=== PATIENT | male | born 1930 | race Caucasian/White ===

== ENCOUNTER 2016-05-02 14:12 | Emergency (ER) | payer OTHER ==
[~2016-05-02] VITALS: Ht 175.3 cm; Wt 73.8 kg
[~2016-05-02 14:12] MED LIST: CENTTAB9 PO; LORA0.5T PO; OMEP20CA5 PO; PROC10TA4 PO; TEMA15 PO; ZOFR4TAB3 SL; eye gtts
[2016-05-02 14:35] VITALS: BP 132/67; PULSE 75; RESP 16; TEMP 98.5; O2SAT 94
[2016-05-02] MEDS ORDERED: ACETAMINOPHEN/HYDROcodone 325 MG/5 MG TAB PO ONE (14:45)
--- NOTE | 2016-05-02 14:53 | PD ---
HPI Chief Complaint: Fall Time Seen by Provider: 14:48 Travel History International Travel<30 days: No Contact w/Intl Traveler<30days: No Traveled to known affect area: No History of Present Illness HPI 86-year-old male that presents to the ED for evaluation of trip and fall. Per patient he had trip and fall today at the [employer]. Patient landed trying to stop his fall with both his arms. Per patient he possibly hit his head but he is not sure. He denies any pain in the hips, abdomen, chest but states that most of his pain is on both shoulders bilaterally as well as on the left knee. Per patient most of the pain appears to be on the knee itself. He denies any numbness, tilling, weakness. He does not take any blood thinners. He did not loss consciousness. Patient comes here with family members. He denies any pain in the right lower extremity or any pain on the back or neck. He has not taken anything for this. Injury occurred at 11:00 today. He states having no surgeries or injuries to these areas in the past. Allergy to aspirin. Pain per patient is severe 7 out of 10 especially on the left knee and with movement and weightbearing. 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) High Cholesterol: No Chemotherapy: No Chest Pain: No Congestive Heart Failure: No COPD: No Cerebrovascular Accident: No Diabetes: No Endocrine: No Gastrointestinal Disorders: Yes GERD: Yes Glaucoma: No Genitourinary: No Headaches: Yes Hepatitis: No Hiatal Hernia: No Hypertension: No Immune Disorder: No Kidney Stones: No Musculoskeletal: Yes Neurologic: Yes Psychiatric: Yes Reproductive: No Respiratory: No Myocardial Infarction: No Radiation Therapy: No Renal Failure: No Seizures: No Sickle Cell Disease: No Sleep Apnea: No Thyroid Disease: No Ulcer: No Past Surgical History Abdominal Surgery: No AICD: No Cardiac Surgery: No Ear Surgery: No Endocrine Surgery: No Eye Surgery: No Genitourinary Surgery: Yes (PROSTATE 1991) Gynecologic Surgery: No Neurologic Surgery: No Oral Surgery: No Pacemaker: No Thoracic Surgery: No Other Surgery: Yes Social History Alcohol Use: Yes (OCC.) Tobacco Use: No (QUIT 1968) Substance Use: No Allergies-Medications (Allergen,Severity, Reaction): Coded Allergies: Aspirin (Verified Adverse Reaction, Mild, 05/02/16) GI UPSET has no allergy Reported Meds & Prescriptions Reported Meds & Active Scripts Active Walker/Adult/Folding (Device) 1 Mis Mis 1 Ea .ROUTE DIRECTED Lortab (Hydrocodone-Acetaminophen) 5-325 Mg Tab 1 Tab PO Q6H PRN Reported Omeprazole 20 Mg Tab 20 Mg PO DAILY Restoril (Temazepam) 15 Mg Cap 15 Mg PO HS PRN Review of Systems General / Constitutional: No: Fever, Chills, Weight Gain, Weight Loss, Other Eyes: No: Diploplia, Blurred Vision, Photophobia, Drainage, Redness, Foreign Body Sensation, Pain, Tearing, Blind Spots, Visual changes, Blindness, Other HENT: No: Headaches, Vertigo, Lightheadedness, Sore Throat, Rhinitis, Rhinorrhea, Congestion, Nosebleed, Neck Stiffness, Neck Pain, Masses, Gingival Bleeding, Dental Difficulties, Ear Discharge, Earache, Other Cardiovascular: No: Chest Pain or Discomfort, Palpitations, Irregular Rhythm, Tachycardia, Diaphoresis, Syncope, Dyspnea on exertion, Varicosities, Edema, Cyanosis, Varicosities, Phlebitis, Claudication, Other Respiratory: No: Cough, Shortness of Breath, Wheezing, Sneezing, Orthopnea, Hemoptysis, Stridor, Night Sweats, Pleuritic Pain, Other Gastrointestinal: No: Nausea, Vomiting, Diarrhea, Abdominal Pain, Hematemesis, Hematochezia, Constipation, Changes in Bowel Habits, Indigestion, Dysphagia, Loss of Appetite, Other Genitourinary: No: Urgency, Frequency, Dysuria, Nocturia, Hematuria, Decreased Urinary Output, Oliguria, Hesitancy, Dribbling, Incontinence, Pelvic Pain, Flank Pain, Dyspareunia, Discharge, Dysmenorrhea, Menorrhagia, Metorrhagia, Vaginal Bleeding, Other Musculoskeletal: Positive: Limited ROM (due to pain), Pain, No: Myalgias, Arthralgias, Weakness, Cramping, Edema, Atrophy, Other Skin: Positive Rash (abrasions), No Itching, No Dryness, No Lumps, No Hives, No Change in Pigmentation, No Change in nails, No Alopecia, No Lesions, No Breast Lumps, No Breast Tenderness, No Breast Swelling, No Other Neurologic: No: Weakness, Dizziness, Syncope, Focal Abnormalities, Coordination Problem, Tremor, Ataxia, Headache, Change in Mentation, Slurred Speech, Paresthesia, Incontinence, Seizures, Sensory Disturbance, Other Psychiatric: No: Anxiety, Depression, Suicidal Ideations, Disorder of Thought, Mood Disorder, Substance Abuse, Homicidal Ideation, Other Endocrine: No: Heat Intolerance, Cold Intolerance, Polyuria, Polydipsia, Other Hematologic/Lymphatic: No: Easy Bruising Physical Exam Narrative GENERAL: SKIN: Warm and dry. HEAD: Atraumatic. Normocephalic. EYES: Pupils equal and round 4 mm reactive to light and accommodation. No scleral icterus. No injection or drainage. ENT: No nasal bleeding or discharge. Mucous membranes pink and moist. Tongue is midline. No uvula deviation. NECK: Trachea midline. No JVD. CARDIOVASCULAR: Regular rate and rhythm. No murmurs, S3, S4. RESPIRATORY: No accessory muscle use. Clear to auscultation. Breath sounds equal bilaterally. GASTROINTESTINAL: Abdomen soft, non-tender, nondistended. Hepatic and splenic margins not palpable. MUSCULOSKELETAL: Extremities without clubbing, cyanosis, or edema. No obvious deformities. Patient has pain especially with touch on both shoulders bilaterally. Left worse than right. Some bruising noted. No obvious deformity noted. Full range of motion of the elbows and wrist as well as the fingers. 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 Patient does have abrasions noted to the left knee but able to move it. Patient does have and with flexion and extension. Most of the pain appears to be on the patella area. No pain with range of motion or with touch on the entire right lower extremity as well as to the ankle and hip and foot and toes of the left lower extremity. No lumbar, thoracic, cervical spine tenderness to palpation. No chest discomfort or abdominal discomfort noted with touch. NEUROLOGICAL: Awake and alert. No obvious cranial nerve deficits. Motor grossly within normal limits. Five out of 5 muscle strength in the arms and legs. Normal speech. PSYCHIATRIC: Appropriate mood and affect; insight and judgment normal. Data Data Last Documented VS Vital Signs Date Time Temp Pulse Resp B/P Pulse Ox O2 Delivery O2 Flow Rate FiO2 05/02/16 14:35 98.5 75 16 132/[address] Brain W/O Iv Contrast(Rout) (05/02/16 14:45) Knee, Complete (4vws) (05/02/16 14:45) Shoulder, Complete (>2vws) (05/02/16 14:45) Ice/Cold Pack (05/02/16 14:45) Shoulder, Complete (>2vws) (05/02/16 ) Acetamin-Hydrocod 325-5 Mg ([place] 5-325 (05/02/16 14:45) Splint Or Brace Apply/Monitor (05/02/16 16:08) Immobilizer Knee 20 Inch (05/02/16 ) [facility] Medical Decision Making Medical Screen Exam Complete: Yes Emergency Medical Condition: Yes Medical Record Reviewed: Yes Interpretation(s) Last Impressions Shoulder X-Ray 05/02/16 1445 Signed Impressions: Service Date/Time: Monday, May 02, 2016 15:20 - CONCLUSION: Osteopenia with no acute fracture or malalignment Malachi Smith MD Knee X-Ray 05/02/16 1445 Signed Impressions: Service Date/Time: Monday, May 02, 2016 15:13 - CONCLUSION: 1. Osteopenia with no acute fracture or malalignment. 2. 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 3. 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 Malachi Smith MD Shoulder X-Ray 05/02/16 0000 Signed Impressions: Service Date/Time: Monday, May 02, 2016 15:24 - CONCLUSION: Osteopenia with no acute fracture or malalignment. Malachi Smith MD CT head negative Differential Diagnosis Fracture versus sprain versus strain versus contusion Narrative Course 86-year-old male that presents to the ED for evaluation of fall. Patient was properly examined and was found to have signs and symptoms concerning for fractures. X-rays were done. Patient was given Lortab for pain. Imaging was essentially unremarkable for acute disease. Patient was reassured. Patient was put in a knee immobilizer for comfort on the left knee. Patient will be given prescription for walker. Perfusion for Lortab for pain. Ice or warm compresses. Rest. Close follow-up with PCP. See ED for any worsening symptoms. Diagnosis Primary Impression: Fall Qualified Code: W19.XXXA - Fall, initial encounter Additional Impressions: Knee contusion Qualified Code: S80.02XA - Contusion of left knee, initial encounter Shoulder contusion Qualified Code: S40.019A - Contusion of shoulder, unspecified laterality, initial encounter Patient Instructions: Narcotic given in the ED Additional Instructions: Take medications as prescribed. Follow-up with PCP. See ED for any worsening symptoms. Do not drink or drive while taking pain medication. Apply ice or heat as needed for pain Med/Other Pt SpecificInfo: Prescription(s) given Scripts Walker/Adult/Folding 1 Mis Mis #1 EA .ROUTE DIRECTED Ref 0 Prov:Rosas Michael MD 05/02/16 Hydrocodone-Acetaminophen (Lortab)5-325 Mg Tab1 Tab PO Q6H PRN (PAIN) #20 TAB Prov:Rosas Michael MD 05/02/16 Disposition: 01 DISCHARGE HOME Condition: Melecio Brown May 02, 2016 14:53
[2016-05-02] MEDS ORDERED: OMEP20TA PO (15:08)
[2016-05-02] MEDS ORDERED: REST15CA PO (15:08)
--- NOTE | 2016-05-02 15:57 | RADHPO ---
EXAM DATE/TIME: 05/02/2016 15:13 [facility] COMPARISON: No previous studies available for comparison. INDICATIONS : Fell , has left knee pain with limited ROM MEDICAL HISTORY : None. SURGICAL HISTORY : left knee ENCOUNTER: Initial ACUITY: 1 day PAIN SCORE: 9/10 LOCATION: Left knee FINDINGS: A standard 4 view examination of the left knee was obtained and demonstrates the patient is status po st hemiarthroplasty in the medial compartment. There is diffuse osteopenia with no acute fracture or malalignment. There are degenerative changes in the patellofemoral joint with spurring. There is a sm all joint effusion. CONCLUSION: 1. Osteopenia with no acute fracture or malalignment. 2. 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 3. 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 Malachi Smith MD on May 02, 2016 at 15:55 Board Certified Radiologist. This report was verified electronically.
--- NOTE | 2016-05-02 15:58 | RADHPO ---
EXAM DATE/TIME: 05/02/2016 15:20 [facility] COMPARISON: No previous studies available for comparison. INDICATIONS : Left shoulder pain with limited ROM from fall today MEDICAL HISTORY : None. SURGICAL HISTORY : Left knee surgery ENCOUNTER: Initial ACUITY: 1 day PAIN SCORE: 9/10 LOCATION: Left Shoulder FINDINGS: Multiple view examination of the left shoulder demonstrates no evidence of fracture or dislocation. The glenohumeral and acromioclavicular joints are maintained. There is normal range of motion betwee n internal and external rotation. There is diffuse osteopenia. CONCLUSION: Osteopenia with no acute fracture or malalignment Malachi Smith MD on May 02, 2016 at 15:57 Board Certified Radiologist. This report was verified electronically.
--- NOTE | 2016-05-02 16:00 | RADHPO ---
EXAM DATE/TIME: 05/02/2016 15:24 [facility] COMPARISON: SHOULDER RIGHT COMPLETE (>2VWS), September 17, 2012, 16:11. INDICATIONS : Right shoulder pain with limited ROM from fall today MEDICAL HISTORY : None. SURGICAL HISTORY : Left knee ENCOUNTER: Initial ACUITY: 1 day PAIN SCORE: 9/10 LOCATION: Right shoulder FINDINGS: Multiple view examination of the right shoulder demonstrates no evidence of fracture or dislocation. The glenohumeral and acromioclavicular joints are maintained. There is normal range of motion betwe en internal and external rotation. There is diffuse osteopenia. CONCLUSION: Osteopenia with no acute fracture or malalignment. Malachi Smith MD on May 02, 2016 at 15:57 Board Certified Radiologist. This report was verified electronically.
[2016-05-02] MEDS ORDERED: HYDR-3533 PO (16:32)
[2016-05-02] MEDS ORDERED: WALKER/ADULT/FO1 MIS (16:32)
--- NOTE | 2016-05-02 16:40 | RADHPO ---
EXAM DATE/TIME: 05/02/2016 16:09 [facility] COMPARISON: No previous studies available for comparison. INDICATIONS : Trauma; fall. RADIATION DOSE: 63.32 CTDIvol (mGy) MEDICAL HISTORY : Cardiovascular disease. SURGICAL HISTORY : None. ENCOUNTER: Initial ACUITY: 1 day PAIN SCALE: 0/10 LOCATION: cranial TECHNIQUE: Multiple contiguous axial images were obtained of the head. Using automated exposure control and adj ustment of the mA and/or kV according to patient size, radiation dose was kept as low as reasonably a chievable to obtain optimal diagnostic quality images. FINDINGS: CEREBRUM: The ventricles are normal for age with moderate atrophic change. Periventricular white matter lucenci es are present characteristics of chronic small vessel ischemic change. No evidence of midline shift, mass lesion, hemorrhage or acute infarction. No extra-axial fluid collections are seen. POSTERIOR FOSSA: The cerebellum and brainstem are intact. The 4th ventricle is midline. The cerebellopontine angle i s unremarkable. EXTRACRANIAL: The visualized portion of the orbits is intact. SKULL: The calvaria is intact. No evidence of skull fracture. CONCLUSION: 1. Negative trauma study with no evidence of hemorrhage or mass effect. 2. Atrophy and chronic small vessel ischemic change. Malachi Smith MD on May 02, 2016 at 16:37 Board Certified Radiologist. This report was verified electronically.
== END 2016-05-02 17:13 | disposition home or self-care (01) ==
LOC: PHEFT 14:12
DX: S80.02XA Contusion of left knee, initial encounter (principal); S40.012A Contusion of left shoulder, initial encounter; S40.011A Contusion of right shoulder, initial encounter; W01.0XXA Fall on same level from slipping, tripping and stumbling without subsequent striking against object, initial encounter; Y92.512 Supermarket, store or market as the place of occurrence of the external cause; Z87.39 Personal history of other diseases of the musculoskeletal system and connective tissue; Z86.59 Personal history of other mental and behavioral disorders; Z86.79 Personal history of other diseases of the circulatory system; Z87.19 Personal history of other diseases of the digestive system; Z86.69 Personal history of other diseases of the nervous system and sense organs; Z87.891 Personal history of nicotine dependence
CPT/HCPCS: 70450; 73030; 73564; 99284; L1830

== ENCOUNTER 2016-05-15 12:07 | Emergency (ER) | payer OTHER ==
[~2016-05-15] VITALS: Ht 175.3 cm; Wt 75.0 kg
[~2016-05-15 12:07] MED LIST changes: -CENTTAB9 PO; +HYDR-3533 PO; -LORA0.5T PO; -OMEP20CA5 PO; +OMEP20TA PO; -PROC10TA4 PO; +REST15CA PO; -TEMA15 PO; +WALKER/ADULT/FO1 MIS; -ZOFR4TAB3 SL; -eye gtts
[2016-05-15 12:11] VITALS: BP 134/63; PULSE 79; RESP 15; TEMP 98.2; O2SAT 98
--- NOTE | 2016-05-15 12:29 | PD ---
HPI Chief Complaint: Fall Time Seen by Provider: 12:29 Travel History International Travel<30 days: No Contact w/Intl Traveler<30days: No Traveled to known affect area: No History of Present Illness HPI 86-year-old male presents to emergency department for evaluation of persistent left shoulder pain. Patient had a trip and fall May 02, 2016. He was seen and evaluated in the [facility] emergency department. X-ray imaging of the bilateral shoulders was completed at that time. They're negative for acute bony normality. Patient states that the right shoulder has "pretty much healed " but he has persistent, worsening pain in his left shoulder. Exacerbated with movement. Pain is primarily on the anterior lateral aspect of the left shoulder. Denies any new injury. Has not followed up with his primary care provider. He has been taking Lortab as prescribed but is also complaining of constipation associated with this. He has no other symptoms to report at this time. 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) High Cholesterol: No Chemotherapy: No Chest Pain: No Congestive Heart Failure: No COPD: No Cerebrovascular Accident: No Diabetes: No Diminished Hearing: No Endocrine: No Gastrointestinal Disorders: Yes GERD: Yes Glaucoma: No Genitourinary: No Headaches: Yes Hepatitis: No Hiatal Hernia: No Hypertension: No Immune Disorder: No Kidney Stones: No Musculoskeletal: Yes Neurologic: Yes Psychiatric: Yes Reproductive: No Respiratory: No Myocardial Infarction: No Radiation Therapy: No Renal Failure: No Seizures: No Sickle Cell Disease: No Sleep Apnea: No Thyroid Disease: No Ulcer: No Past Surgical History Abdominal Surgery: No AICD: No Cardiac Surgery: No Ear Surgery: No Endocrine Surgery: No Eye Surgery: No Genitourinary Surgery: Yes (PROSTATE 1991) Gynecologic Surgery: No Neurologic Surgery: No Oral Surgery: No Pacemaker: No Thoracic Surgery: No Other Surgery: Yes Social History Alcohol Use: Yes (OCC.) Tobacco Use: No (QUIT 1968) Substance Use: No Allergies-Medications (Allergen,Severity, Reaction): Coded Allergies: Aspirin (Verified Adverse Reaction, Mild, 05/15/16) GI UPSET has no allergy Reported Meds & Prescriptions Reported Meds & Active Scripts Active Mobic (Meloxicam) 7.5 Mg Tab 7.5 Mg PO DAILY PRN Walker/Adult/Folding (Device) 1 Mis Mis 1 Ea .ROUTE DIRECTED Lortab (Hydrocodone-Acetaminophen) 5-325 Mg Tab 1 Tab PO Q6H PRN Reported Omeprazole 20 Mg Tab 20 Mg PO DAILY Restoril (Temazepam) 15 Mg Cap 15 Mg PO HS PRN Review of Systems Except as stated in HPI: all other systems reviewed are Neg Physical Exam Narrative GENERAL: Well-nourished, well-developed elderly male patient, ambulatory no acute distress SKIN: Focused skin assessment warm/dry. Ecchymosis over the anterolateral right proximal upper extremity. HEAD: Normocephalic. EYES: No scleral icterus. No injection or drainage. NECK: Supple, trachea midline. No JVD or lymphadenopathy. CARDIOVASCULAR: Regular rate and rhythm without murmurs, gallops, or rubs. RESPIRATORY: Breath sounds equal bilaterally. No accessory muscle use. MUSCULOSKELETAL: No cyanosis, or edema. Congenital deformity of the left hand. Tenderness of palpation of his left anterolateral shoulder. No deformity. Pain is exacerbated with abduction greater than 60. Patient can reach across his chest however this elicits pain in the left shoulder. Distal pulses are palpable. Cap refill is within normal limits. BACK: Nontender without obvious deformity. No CVA tenderness. Data Data Last Documented VS Vital Signs Date Time Temp Pulse Resp B/P Pulse Ox O2 Delivery O2 Flow Rate FiO2 05/15/16 12:11 98.2 79 15 134/63 98 Orders Shoulder, Complete (>2vws) (05/15/16 ) Ketorolac Inj (Toradol Inj) (05/15/16 13:15) Splint Or Brace Apply/Monitor (05/15/16 13:50) [facility] Medical Decision Making Medical Screen Exam Complete: Yes Emergency Medical Condition: Yes Medical Record Reviewed: Yes Differential Diagnosis Sprain versus fracture versus dislocation versus ligamentous injury Narrative Course 86-year-old male presents to the emergency department for evaluation of persistent, worsening left shoulder pain. Patient appears well and without distress. X-ray imaging is repeated with no acute bony abnormality. This is a normal examination for a person of this age. Patient was provided pain control. He is counseled on care. Placed in a sling and educated on range of motion exercises. He is encouraged to follow-up with orthopedic assistant as outpatient MRI may be warranted. He agrees to return immediately with any acute worsening of symptoms. Diagnosis Primary Impression: Left shoulder pain Qualified Code: M25.512 - Left shoulder pain, unspecified chronicity Referrals: Orthopaedic Surgeon Primary Care Physician Patient Instructions: General Instructions, Shoulder Pain (ED) Additional Instructions: Ice and/or warm moist heat may help to alleviate symptoms Follow-up with a primary care provider Seek orthopedic evaluation. Outpatient MRI may be warranted of her left shoulder. Wear sling for support. Do not sleep in this. Do not wear sling at all times and do range of motion exercises to reduce risk of frozen shoulder MiraLAX 2 times a day as directed on the package while taking narcotic pain medication to reduce constipation risk Maintain adequate oral hydration Do not take ibuprofen, Aleve, Advil, or other NSAIDs if taking meloxicam as prescribed Return immediately to the emergency department with any acute worsening of symptoms Med/Other Pt SpecificInfo: Prescription(s) given Scripts Meloxicam (Mobic)7.5 Mg Tab7.5 Mg PO DAILY PRN (PAIN SCALE 1 TO 10) #7 TAB Ref 0 Prov:Neida Lowe 05/15/16 Disposition: 01 DISCHARGE HOME Condition: Stable Neida Lowe May 15, 2016 12:29
[2016-05-15] MEDS ORDERED: KETOROLAC TROMETHAMINE 60 MG/2 ML (IM) VIAL IM ONE (13:15)
--- NOTE | 2016-05-15 13:44 | RADRPT ---
EXAM DATE/TIME: 05/15/2016 13:42 [facility] COMPARISON: SHOULDER LEFT COMPLETE (>2VWS), May 02, 2016, 15:20. INDICATIONS : Left shoulder pain after fall two weeks ago. MEDICAL HISTORY : Cardiovascular disease. SURGICAL HISTORY : None. ENCOUNTER: Initial ACUITY: 2 weeks PAIN SCORE: 10/10 LOCATION: Left shoulder. FINDINGS: Multiple view examination of the left shoulder demonstrates no evidence of fracture or dislocation. The glenohumeral and acromioclavicular joints are maintained. There is normal range of motion betwee n internal and external rotation. Bony mineralization is normal. CONCLUSION: Normal examination for a patient of this age. Thompson Laws MD FACR on May 15, 2016 at 13:43 Board Certified Radiologist. This report was verified electronically.
[2016-05-15] MEDS ORDERED: MOBI7.5T PO (13:52)
[2016-05-15 14:20] VITALS: BP 130/78; RESP 17; TEMP 98.1
== END 2016-05-15 14:20 | disposition home or self-care (01) ==
LOC: NEPA 12:07
DX: M25.512 Pain in left shoulder (principal)
CPT/HCPCS: 73030; 96372; 99283; J1885

== ENCOUNTER 2017-03-31 09:32 | Emergency (ER) | payer OTHER ==
[~2017-03-31] VITALS: Ht 175.3 cm; Wt 69.0 kg
[~2017-03-31 09:32] MED LIST changes: +MOBI7.5T PO; -OMEP20TA PO; +OMEP20TA93 PO
[2017-03-31 09:39] VITALS: BP 118/56; PULSE 66; RESP 17; TEMP 98.6; O2SAT 97
--- NOTE | 2017-03-31 09:52 | PD ---
HPI Chief Complaint: Musculoskeletal Complaint Time Seen by Provider: 09:51 Travel History International Travel<30 days: No Contact w/Intl Traveler<30days: No Traveled to known affect area: No History of Present Illness HPI 87-year-old male came to the emergency room with history of right upper extremity tingling and numbness for past 6-7 days. Patient says that he generally sleeps on his right side but he has been doing that for years. Lately he has been woken up in the middle of his sleep at night feeling intense numbness of his right hand that travels up to his elbow and the shoulder. The numbness is of all 5 fingers. Patient says that when he wakes up his entire arm is numb but as the day progresses the numbness slowly goes away. His strength has not become worse in the past 6-7 days. Patient still goes to work. Vital signs were stable. No history of pain or any other complaints. He has been a relatively healthy individual and takes. Medications. No changes in his medications. He is not a smoker. No history of associated shortness of breath or any other symptoms. Currently he says his arm feels slightly tingling. This is the first time he has come to see a physician regarding this. [facility] Past Medical History Narrative Medical List of his past medical, surgical, social and family history is reviewed from the nursing note. 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, MITRAL VALVE PROLAPSE ) High Cholesterol: Yes (HYPERLIPIDEMIA ) Chemotherapy: No Chest Pain: No Congestive Heart Failure: No COPD: No Cerebrovascular Accident: No Diabetes: No Diminished Hearing: Yes (HEARING PROBLEM ) Endocrine: No Gastrointestinal Disorders: Yes GERD: Yes Glaucoma: No Genitourinary: No Headaches: Yes Hepatitis: No Hiatal Hernia: No Hypertension: No Immune Disorder: No Kidney Stones: No Musculoskeletal: Yes Neurologic: Yes Psychiatric: Yes Reproductive: No Respiratory: No Myocardial Infarction: No Radiation Therapy: No Renal Failure: No Seizures: No Sickle Cell Disease: No Sleep Apnea: No Thyroid Disease: No Ulcer: No Past Surgical History Abdominal Surgery: No AICD: No Cardiac Surgery: No Ear Surgery: No Endocrine Surgery: No Eye Surgery: No Genitourinary Surgery: Yes (PROSTATE 1991) Gynecologic Surgery: No Neurologic Surgery: No Oral Surgery: No Pacemaker: No Thoracic Surgery: No Other Surgery: Yes Social History Alcohol Use: Yes (OCC.) Tobacco Use: No (QUIT 1968) Substance Use: No Allergies-Medications (Allergen,Severity, Reaction): Coded Allergies: aspirin (Unverified Adverse Reaction, Mild, 09/28/16) GI UPSET has no allergy Comments List of his allergies reviewed from the nursing note. Reported Meds & Prescriptions Reported Meds & Active Scripts Active Reported Omeprazole 20 Mg Tab 20 Mg PO DAILY Narrative Medication List of his home medications reviewed from the nursing note. Review of Systems Except as stated in HPI: all other systems reviewed are Neg Neurologic: Positive: Paresthesia Physical Exam Narrative GENERAL: Awake, alert, hard of hearing, no obvious distress, elderly SKIN: Focused skin assessment warm/dry. HEAD: Atraumatic. Normocephalic. EYES: Pupils equal and round. No scleral icterus. No injection or drainage. ENT: No nasal bleeding or discharge. Mucous membranes pink and moist. NECK: Trachea midline. No JVD. CARDIOVASCULAR: Regular rate and rhythm. No murmur appreciated. RESPIRATORY: No accessory muscle use. Clear to auscultation. Breath sounds equal bilaterally. GASTROINTESTINAL: Abdomen soft, non-tender, nondistended. Hepatic and splenic margins not palpable. MUSCULOSKELETAL: No obvious deformities. No clubbing. No cyanosis. No edema. NEUROLOGICAL: Awake and alert. No obvious cranial nerve deficits. Motor grossly within normal limits. Normal speech. PSYCHIATRIC: Appropriate mood and affect; insight and judgment normal. Data Data Last Documented VS Vital Signs Date Time Temp Pulse Resp B/P (MAP) Pulse Ox O2 Delivery O2 Flow Rate FiO2 03/31/17 09:39 98.6 66 17 118/56 ([address] Brain W/O Iv Contrast(Rout) (03/31/17 ) Ct Cerv Spine W/O Contrast (03/31/17 ) Ed Discharge Order (03/31/17 10:53) [facility] Medical Decision Making Medical Screen Exam Complete: Yes Emergency Medical Condition: Yes Medical Record Reviewed: Yes Differential Diagnosis Paresthesia, myelopathy, PVD Narrative Course 10:51 AM patient has good bounding radial pulses. CT scan of his brain and cervical spine was done. CT scan of the brain shows cerebral atrophy and some degenerative white matter changes. C-spine shows DJD's at multilevel. No severe foraminal narrowing or canal stenosis. At this point I am still convinced that this is probably from a myelopathy or radiculopathy. I'm comfortable however discharging him home since his symptoms are reversible every day. He needs to follow up with his primary care and get an outpatient MRI and a follow-up with neurology. 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 Otherwise follow-up with your primary care who needs to order an outpatient MRI and a referral to a neurologist. Med/Other Pt SpecificInfo: No Change to Meds Disposition: 01 DISCHARGE HOME Condition: Stable Fabiana Rodriguez MD Mar 31, 2017 09:52
--- NOTE | 2017-03-31 10:26 | RADRPT ---
EXAM DATE/TIME: 03/31/2017 10:14 [facility] COMPARISON: CT BRAIN W/O CONTRAST, May 02, 2016, 16:09. INDICATIONS : Right arm pain and tingling. Evaluate for cerebrovascular accident. RADIATION DOSE: 55.99 CTDIvol (mGy) MEDICAL HISTORY : Cardiovascular disease. Gastroesophageal reflux disease. Carcinoma, prostate. SURGICAL HISTORY : Prostatectomy. ENCOUNTER: Initial ACUITY: 1 week PAIN SCALE: 0/10 LOCATION: cranial TECHNIQUE: Multiple contiguous axial images were obtained of the head. Using automated exposure control and adj ustment of the mA and/or kV according to patient size, radiation dose was kept as low as reasonably a chievable to obtain optimal diagnostic quality images. DICOM format image data is available electro nically for review and comparison. FINDINGS: CEREBRUM: Stable demonstrating central atrophy with ventricular enlargement and confluent periventricular white matter disease. No focal findings suggesting the presence of an acute stroke or hemorrhage. There is no mass mass effect. POSTERIOR FOSSA: The cerebellum and brainstem are intact. The 4th ventricle is midline. The cerebellopontine angle i s unremarkable. EXTRACRANIAL: The visualized portion of the orbits is intact. SKULL: The calvaria is intact. No evidence of skull fracture. CONCLUSION: 1. 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 2. No evidence of acute infarct, hemorrhage, mass or edema. Edgar Kessler MD on March 31, 2017 at 10:22 Board Certified Radiologist. This report was verified electronically.
--- NOTE | 2017-03-31 10:37 | RADRPT ---
EXAM DATE/TIME: 03/31/2017 10:14 [facility] COMPARISON: No previous studies available for comparison. INDICATIONS : Right arm pain and tingling. Myelopathy. RADIATION DOSE: 25.52 CTDIvol (mGy) MEDICAL HISTORY : Cardiovascular disease. Gastroesophageal reflux disease. Carcinoma, prostate. SURGICAL HISTORY : Prostatectomy. ENCOUNTER: Initial ACUITY: 1 week PAIN SCALE: 8/10 LOCATION: Right arm TECHNIQUE: Volumetric scanning of the cervical spine was performed. Multiplanar reconstructions in the sagittal, coronal and oblique axial planes were performed. Using automated exposure control and adjustment o f the mA and/or kV according to patient size, radiation dose was kept as low as reasonably achievable to obtain optimal diagnostic quality images. DICOM format image data is available electronically f or review and comparison. FINDINGS: VERTEBRAE: Normal vertebral body height. ALIGNMENT: A minimal grade 1 anterolisthesis of C4 on C5 and mild retrolisthesis of C5 on C6. C2-C3: The bony spinal canal is normal in size. No evidence of disc bulge or herniation. The neural forami na are bilaterally patent. C3-C4: A central bulge just touches the ventral portion of the cord. Bony uncovertebral hypertrophy generate s moderate right neural foraminal narrowing. The left remains patent. Lateral recesses remain patent. C4-C5: A mild broad-based disc bulge that just touches the ventral portion of the cord. Bony uncovertebral h ypertrophy generates mild bilateral neural foraminal narrowing. Lateral recesses remain patent. C5-C6: A broad-based disc osteophyte complex without central canal stenosis. Mild narrowing of the lateral r ecesses bilaterally. Bony uncovertebral hypertrophy generates moderate bilateral neural foraminal odilon rowing. C6-C7: Disc space narrowing with minimal broad-based disc bulge. No central canal stenosis. Lateral recesses are patent. Neural foramina are patent. C7-T1: The bony spinal canal is normal in size. No evidence of disc bulge or herniation. The neural forami na are bilaterally patent. CONCLUSION: 1. Multilevel degenerative changes as detailed at each level in the above discussion. 2. No acute abnormality. Richard Bethea Jr., MD on March 31, 2017 at 10:31 Board Certified Radiologist. This report was verified electronically.
== END 2017-03-31 11:11 | disposition home or self-care (01) ==
LOC: PHED 09:32
DX: R20.2 Paresthesia of skin (principal); M47.22 Other spondylosis with radiculopathy, cervical region; E78.5 Hyperlipidemia, unspecified; I25.10 Atherosclerotic heart disease of native coronary artery without angina pectoris; K21.9 Gastro-esophageal reflux disease without esophagitis; Z85.46 Personal history of malignant neoplasm of prostate; Z88.8 Allergy status to other drugs, medicaments and biological substances
CPT/HCPCS: 70450; 72125; 99283